=== PATIENT | male | born 1960 | race Caucasian/White ===

== ENCOUNTER 2024-02-05 10:06 | Emergency (ER) | payer OTHER ==
[2024-02-05 10:50] LABS: #Basophils 0.1 thou/uL (0.0-0.2); #Lymphocytes 0.4 thou/uL (1.20-3.40); #Monocytes 0.4 thou/uL (0.11-0.59); #Neutrophils 5.8 thou/uL (1.40-6.50); %Basophils 1.2 % (0.0-1.0); %Eosinophils 0.3 % (0.0-10.0); %Lymphocytes 6.2 % (21.0-51.0); %Monocytes 6.1 % (0.0-10.0); %Neutrophils 86.2 % (42.0-75.0); Hematocrit 39.2 % (42.0-52.0); Hemoglobin 12.6 g/dL (14.0-18.0); Mean Corpuscular HGB CONC 32.2 g/dL (32.0-36.0); Mean Corpuscular Hemoglobin 29.5 pg (27.0-31.0); Mean Corpuscular Volume 91.7 fl (78.0-98.0); Mean Platelet Volume 7.3 fL (7.4-10.4); Platelet Count 145 10x3/uL (130-400); RBC Distribution Width 12.7 % (11.5-14.5); Red Blood Cell (RBC) Count 4.27 mill/uL (4.70-6.10); White Blood Cell (WBC) Count 6.7 10x3/uL (4.8-10.8)
[2024-02-05 10:56] LABS: INR-International Normal Ratio 1.1; PTT 24.2 sec (22.9-36.1); Prothrombin Time 13.8 sec (12.0-14.7)
[2024-02-05] MEDS ORDERED: Lactated Ringer's 2,000 ML ONE (11:00)
[2024-02-05 11:05] LABS: ALT (SGPT) 35 U/L (8-55); AST (SGOT) 25 U/L (5-34); Albumin 3.8 g/dL (3.4-4.8); Alkaline Phosphatase 63 U/L (40-110); Anion Gap 15 mmol/L (10-20); BUN (Urea Nitrogen) 41 mg/dL (8.4-25.7); Bilirubin, Total 0.9 mg/dL (0.2-1.2); CK (CPK) 316 U/L (30-200); Calc. Creatinine Clearance 0 mL/min (70-130); Calcium 9.3 mg/dL (7.8-10.44); Carbon Dioxide 21 mmol/L (23-31); Chloride 105 mmol/L (98-107); Estimated GFR 41; Globulin 1.8 g/dL (2.4-3.5); Glucose 114 mg/dL (80-115); Magnesium 1.9 mg/dL (1.6-2.6); Potassium 3.2 mmol/L (3.5-5.1); Protein, Total 5.6 g/dL (5.8-8.1); Sodium 138 mmol/L (136-145); Troponin I 0.026 ng/mL (< 0.028)
[2024-02-05] MEDS ORDERED: Potassium Chloride 20 MEQ TAB ONE (11:29)
[2024-02-05 12:18] LABS: Anion Gap 15 mmol/L (10-20); BUN (Urea Nitrogen) 38 mg/dL (8.4-25.7); Calc. Creatinine Clearance 0 mL/min (70-130); Calcium 9.2 mg/dL (7.8-10.44); Carbon Dioxide 23 mmol/L (23-31); Chloride 103 mmol/L (98-107); Estimated GFR 48; Glucose 99 mg/dL (80-115); Potassium 3.9 mmol/L (3.5-5.1); Sodium 137 mmol/L (136-145)
[2024-02-05 13:03] LABS: Bilirubin Negative (Negative); Blood, Urine Negative (Negative); Clarity Clear (Clear); Glucose, Urine (Dipstick) Negative (Negative); Ketone, Urine Trace mg/dL (Negative); Leukocyte Negative (Negative); Nitrite Negative (Negative); Protein, Urine (Dipstick) Negative (Neg-Trace); Specific Gravity, Urine 1.015 (1.005-1.030); Urobilinogen 0.2 mg/dL (Less than 2)
[2024-02-05 13:09] LABS: Bacteria/HPF Rare-Few HPF (None Seen); CAUTI Indications for Culture Alt mental st,lethar; RBC/HPF 0-3 HPF (0-3); Squamous Epithelial 0-3 HPF (0-3); WBC/HPF 0-3 HPF (0-3)
[2024-02-05 13:10] LABS: Urine Culture Reflex No No
[2024-02-05] MEDS ORDERED: Lactated Ringer's 1,000 ML ONE (14:05)
[2024-02-05] MEDS ORDERED: Sodium Chloride 0.9% 250 ML 250 ML ONE (17:57)
[2024-02-05] MEDS ORDERED: Vancomycin 1 GM VIAL ONE (17:57)
== END 2024-02-05 13:13 | disposition home or self-care (01) ==
LOC: MADERS 10:06
DX: E86.0 Dehydration (principal); N17.9 Acute kidney failure, unspecified; E87.6 Hypokalemia; E05.90 Thyrotoxicosis, unspecified without thyrotoxic crisis or storm; I48.91 Unspecified atrial fibrillation
CPT/HCPCS: 36416; 70450; 71045; 72125; 80053; 81001; 82550; 83605; 83735; 83880; 84443; 84484; 85025; 85610; 85730; 87040; 93005; 94760; 96360; 96361; J3370; J7050; J7120